=== PATIENT | male | born 1960 | race Caucasian/White ===

== ENCOUNTER 2021-02-27 10:21 | Outpatient (REF) | payer OTHER, SELFPAY ==
[2021-02-27 11:28] LABS: Influenza A PCR NEGATIVE (Negative); Influenza B PCR NEGATIVE (Negative); Resp Syncy Virus RNA Qual PCR NEGATIVE (Negative); SARS COV2 PCR INHOUSE NEGATIVE (Negative)
== END 2021-02-27 10:22 | disposition home or self-care (01) ==
LOC: HO.LNP 10:21
PROVIDERS: Visit Provider Internal Medicine
DX: Z20.822 Contact with and (suspected) exposure to COVID-19 (principal); R50.9 Fever, unspecified
CPT/HCPCS: 0241U

== ENCOUNTER 2022-05-01 06:21 | Outpatient (REF) | payer OTHER, SELFPAY ==
[2022-05-01 06:31] LABS: MANUAL DIFF FLAG NO
[2022-05-01 07:41] LABS: Basophils Absolute Auto 0.1 X10*3/uL (0.0-0.2); Basophils Percent Auto 0.8 % (0-2); Eosinophils Absolute Auto 0.4 X10*3/uL (0.0-0.4); Eosinophils Percent Auto 6.1 % (0-4); Hematocrit 41.7 % (42.0-52.0); Hemoglobin 14.4 g/dl (14.0-18.0); Imm Gran Abs Auto 0.01 X10*3/uL (0.00-0.03); Imm Gran Pct Auto 0.2 % (0.0-0.4); Lymphocytes Absolute Auto 2.4 X10*3/uL (1.2-4.9); Mean Corpuscular HGB Conc 34.5 g/dl (31.0-36.0); Mean Corpuscular Hemoglobin 30.9 pg (27.0-33.0); Mean Corpuscular Volume 89.5 fL (80.0-98.0); Monocytes Absolute Auto 0.4 X10*3/uL (0.1-1.2); Monocytes Percent Auto 7.1 % (2-11); Neutrophils Absolute Auto 2.8 x10*3/uL (2.0-8.3); Neutrophils Percent Auto 45.8 % (45-73); Platelet Count 223 X10*3/uL (160-400); Red Blood Count 4.66 X10*6/uL (4.60-5.80); Red Cell Distribution Width 12.1 % (11.0-16.0); White Blood Count 6.1 X10*3/uL (4.8-10.8)
[2022-05-01 08:03] LABS: Alanine Aminotransferase 24 U/L (0-40); Albumin Level 3.9 g/dL (3.5-5.0); Alkaline Phosphatase 85 U/L (39-117); Anion Gap 13 (12-20); Aspartate Amino Transferase 27 U/L (5-37); Bilirubin Total 0.7 mg/dL (0.0-1.0); Blood Urea Nitrogen 12 mg/dL (9-16); Calcium 9.4 mg/dL (8.4-10.2); Carbon Dioxide 25 mmol/L (22-29); Chloride 106 mmol/L (96-108); Cholesterol 120 mg/dL; Estimated Glomerular Filt Rate > 60; Glucose Fasting 97 mg/dL (60-99); HDL Cholesterol 39 mg/dL; LDL Cholesterol Calculated 60 mg/dl; Potassium 4.9 mmol/L (3.3-5.1); Sodium 139 mmol/L (135-145); Triglycerides 109 mg/dL
[2022-05-01 08:26] LABS: Appearance Urine Clear; Color Urine Yellow; Glucose Urine UA Negative (Negative); Leukocyte Esterase Urine Negative (Negative); Nitrite Urine Negative (Negative); PH 5.5 (5.0-9.0); Specific Gravity - Urine 1.015 (1.005-1.025); UMIC TRIGGER UA YES; Urine Blood Trace (Negative); Urine Ketones Negative (Negative); Urine Protein Negative (Neg-Trace)
[2022-05-01 08:32] LABS: Bacteria Urine None Seen (None Seen); Hyaline Casts Urine 0-2 /LPF (0-2); RBC Urine 0-2 /HPF (0-2); Squamous Epithelial Cell Urine 0-2 /HPF (0-2); WBC Urine 0-5 /HPF (0-5)
== END 2022-05-01 06:22 | disposition home or self-care (01) ==
LOC: HO.LAB 06:21
PROVIDERS: PCP Internal Medicine; Visit Provider Internal Medicine
DX: Z00.00 Encounter for general adult medical examination without abnormal findings (principal); Z12.5 Encounter for screening for malignant neoplasm of prostate
CPT/HCPCS: 36415; 80053; 80061; 81001; 81003; 84153; 85025

== ENCOUNTER 2023-03-05 13:41 | Outpatient (AMB) | payer OTHER, SELFPAY ==
--- NOTE | 2023-03-05 13:39 | A.OFFVIS_ITS ---
Intake Vital Signs 03/05/23 13:46 Height 6 ft Weight 211 lb 10.3 oz BMI 28.7 BP 122/82 Blood Pressure Location Lt brachial Position Sitting Pulse 68 Intake Visit Reasons: FAN RUNNER/ Gladys/ CP Intake Note: New patient Danielluis chest pain at rest had stent 8 years ago Lacer And Tier Required: No Allergies No Known Allergies [No Known Allergies*] Allergy (Unverified 04/27/20 15:39) Medication List - Last Reconciled 03/05/23 by Omar Barbosa MD aspirin (Adult Aspirin Regimen) 81 mg PO DAILY atorvastatin 40 mg PO BEDTIME diltiazem HCl 120 mg PO DAILY lisinopril 10 mg PO DAILY HPI HPI Comments History of Present Illness Details Thank you for referring Benson in cardiology consultation today. 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 At that time he was having symptoms of exertional chest pressure which gradually got worse over few months and subsequently had a stress test which was abnormal at a low workload and was decided to be treated with medicine. However he then developed acute chest discomfort at rest which she describes as pressure in his chest and subsequently had anterior STEMI and underwent urgent cardiac catheterization with drug-eluting stent to the LAD. It nonobstructive disease in the of the segment. Since then he has done very well on medical therapy. He is currently on high-intensity statin therapy with atorvastatin 40 mg with last LDL last April at 60 mg/dL. He is taking low-dose aspirin therapy. He is also taking lisinopril and diltiazem as antihypertensives. Blood pressure is well controlled. Generally active and functional. More recently started having symptoms of precordial chest pain. He describes initial 2 episodes mostly apnea rest as sudden sharp /told like feeling in his chest. Last episode happen on Friday which was more severe discomfort. He was therefore referred here for further evaluation. He said the symptoms are quite distinct from his anginal sounding chest discomfort. He has had no associated symptoms. Only thing he has done differently is at he started eating lot more candy recently. He denies any other symptoms. No exertional shortness of breath, orthopnea, PND. No lightheadedness, syncope. [facility] Medical History CAD (coronary artery disease) HTN (hypertension) Hyperlipidemia Surgical History Stented coronary artery Review of Systems Const Denies chills, Denies fatigue, Denies fever(s), Denies frequent falls, Denies weakness, Denies weight gain and Denies weight loss Eyes Denies loss of vision ENT Denies dizziness Card Denies chest pain, Denies leg edema, Denies lightheadedness, Denies palpitations, Denies dyspnea, Denies dyspnea on exertion, Denies orthopnea and Denies other (loss of consciousness) Resp Denies cough, Denies dyspnea, Denies dyspnea on exertion and Denies wheezing GI Denies hematochezia and Denies change in stool character Denies dysuria and Denies urinary frequency Musc Denies abnormal gait, Denies muscle weakness, Denies numbness, Denies radiating pain into limb and Denies tingling Skin/Breast Denies nail changes and Denies rash Neuro Denies Abnormal speech present, Denies abnormal gait, Denies dizziness, Denies frequent falls, Denies loss of vision, Denies memory loss, Denies numbness, Denies tingling and Denies weakness Psych Denies depression and Denies memory loss Endo Denies fatigue and Denies palpitations Tc/Lymph Reports easy bruising and Reports other (anemia) Aller/Immun Denies wheezing Physical Exam Vital Signs: Last Vital Signs Pulse 68 03/05/23 13:46 BP 122/82 03/05/23 13:46 BMI result Body Mass Index 28.7 Const General: cooperative, comfortable, no acute distress, alert, awake, Physically active and well groomed Nutritional Appearance: overweight Orientation/consciousness: patient oriented x3 Limitations: no limitations HEENT Head: Yes normocephalic and Yes atraumatic Neck Neck: Yes trachea midline, Yes supple and Yes no JVD Resp Effort & Inspection: normal respiratory effort Auscultation: clear to auscultation bilaterally Cardio Jugular venous distension: no JVD Palpation: normal PMI Rate: regular rate Rhythm: regular rhythm Heart sounds: S1 normal heart sound present, S2 normal heart sound present, no click, no gallops, no murmurs and no rubs GI Auscultation: normal bowel sounds Skin General skin exam: no rashes or lesions noted Neuro General: patient oriented x3 and no focal motor deficits Speech: No Abnormal speech present Extrem General: Yes no clubbing, cyanosis or edema Psych Appearance: grossly normal Office Procedures EKG Details: EKG shows normal sinus rhythm with normal EKG [id number], Complete Assessment & Plan Assessment & Plan (1) Atypical chest pain: Code(s): R07.89 - Other chest pain Plan: patient recent onset atypical chest pain after eating a lot of candy. Could be acid reflux disease. Unlikely that this represent myocardial ischemia although given his prior history this needs to be ruled out. Suggest exercise myocardial perfusion imaging to evaluate for any evidence of myocardial ischemia either by EKG and/ or perfusion imaging as well as to detect exercise capacity To give a smoke prognostic information. Also suggest echocardiogram 12 LV systolic and diastolic function to evaluate for hypertensive heart disease. It is possible that this could be related isolated ectopy beats such as PVCs. If the workup is negative would suggest a prolonged Holter monitor. Advised to avoid candies. He understands and agrees. (2) CAD (coronary artery disease): Code(s): I25.10 - Atherosclerotic heart disease of [place] coronary artery without angina pectoris Plan: CAD status post anterior STEMI about 8 years ago with proximal LAD drug- eluting stent. Since then his LDL is well optimized at 60 mg/dL. Continue high-intensity statin therapy. Continue low-dose aspirin therapy. Blood pressure is currently well optimized on dual therapy with lisinopril and diltiazem. Continue the same. Advised to monitor blood pressure at home maintain a log. Low-salt diet was discussed. Will follow up in the clinic in 4 weeks time, sooner p.r.n.. Thank you for all owing me to partake in his care Coding Level of Care Code New Pt Level 4 (10106) Diagnoses Atypical chest pain R07.89 CAD (coronary artery disease) I25.10 CPT Codes EKG - CPT: 02027-[id number], Complete ([id number])
[2023-03-05 13:46] VITALS: BP 122/82; PULSE 68; BMI 28.7
== END 2023-03-05 14:25 | disposition home or self-care (01) ==
PROVIDERS: PCP Internal Medicine; Visit Provider Internal Medicine Cardiovascular Disease
DX: R07.89 Other chest pain (principal); I25.10 Atherosclerotic heart disease of native coronary artery without angina pectoris
CPT/HCPCS: 93010; 99204

== ENCOUNTER → 2023-03-05 13:41 | Outpatient (BNVA) | payer OTHER, SELFPAY | PROVIDERS: PCP Internal Medicine; Visit Provider Internal Medicine Cardiovascular Disease | DX: R07.89 Other chest pain (principal); I25.10 Atherosclerotic heart disease of native coronary artery without angina pectoris | CPT/HCPCS: 93005 ==

== ENCOUNTER → 2023-04-07 07:41 | Outpatient (REF) | payer OTHER, SELFPAY ==
--- NOTE | ~2023-04-07 | NM_ITS ---
Exercise Myocardial perfusion study Indication: Chest pain to evaluate for myocardial ischemia Technique: The patient was brought in for an exercise perfusion study on 04/08/2023. Patient performed exercise as per Alexys protocol and was injected 30 mCi of sestamibi was given intravenously one target HR was achieved. Images were obtained using the SPECT gamma camera interlaced with the gating device. Images were obtained in supine position. Resting perfusion study was performed on 04/07/2023. Patient was administered 30 mCi of sestamibi intravenously at rest. Images were then obtained in supine position. Images obtained with and without CT attenuation. Total DLP 101 mGy-cm. Images were processed with the software and compared side to side in short axis, horizontal long axis and vertical long axis views. Findings: The stress perfusion study showed non attenuated images show mildly to moderately reduced uptake in the basal inferior wall of the LV myocardium. Remainder of the LV myocardium is normally perfused. Attenuation corrected images show minimally reduced uptake in the apex of the LV myocardium. The gated study shows normal LV systolic function with calculated LVEF of 75%. LV cavity is normal in size. The gated study shows normal systolic wall thickening and contraction of all segments. There is no transient ischemic dilation. Resting study shows in perfusion pattern compared to stress perfusion study. Gating at rest reveals normal systolic wall motion with ejection fraction at 73%. The findings are consistent with normal myocardial perfusion. NM/NM cardiolite stress test Impression: 1. Normal myocardial perfusion 2. Gated LVEF is 75% 3. Transient ischemic dilatation not present Stress EKG is suggestive of ischemia
--- NOTE | 2023-04-07 07:54 | CA_ITS ---
Transthoracic Echocardiogram Patient (Last, First, Middle): Benson Salinas G Gender: Male Date of : 1960 Age: 63 Procedure Date: 04/07/2023 Procedure Type: Transthoracic Echocardiogram Location: OP Height: 182.88 cm Weight: 95.26 kg BSA: 2.18 m2 Heart Rate: 69 bpm BP: 145 / 80 mmHg Regulatory Manager: ANDREY Referring MD: Omar Barbosa MD Symptoms: R07.89 - Other chest pain Study Quality: Fair ECG Rhythm: Sinus Conclusions: - The left ventricular systolic function is normal. The calculated ejection fraction is 69% by biplane method. - There is mild septal asymmetric hypertrophy. - No obvious valvular pathology seen on this study. Findings Left Ventricle Normal left ventricular cavity size. There is normal left ventricular wall thickness. The left ventricular systolic function is normal. The calculated ejection fraction is 69% by biplane method. There is no evidence of regional wall motion abnormalities. Evidence suggests grade I (mild) diastolic dysfunction. There is mild septal asymmetric hypertrophy. LV peak GLS 18.1%. Right Ventricle Normal right ventricular cavity size and systolic function. Atria Both atria are normal in size. Suspect overestimation during measurement. Aortic Valve There is a normal trileaflet aortic valve. There is no aortic valve stenosis. There is no aortic valve regurgitation. Mitral Valve The mitral valve appears normal. There is trace mitral valve regurgitation. There is no mitral valve stenosis. Pulmonic Valve The pulmonic valve is likely normal. Tricuspid Valve Normal tricuspid valve structure. There is mild tricuspid valve regurgitation. There is no evidence of pulmonary hypertension. Great Vessels The asc aorta is normal in size. Venous The inferior vena cava is normal in size and collapses greater than 50% with inspiration. Pericardium/Pleural There is no evidence of pericardial effusion. Prior Study Comparison No prior study available for comparison. Recommendations, Care & Conclusions No obvious valvular pathology seen on this study. Measurements 2D Linear Measurements IVSd: 1.21 0.6-0.9/0.6-1.0 cm LVIDd: 4.36 3.9-5.3/4.2-5.9 cm LVIDd Index: 2.00 2.4-3.2/2.2-3.1 cm/m2 LVIDs: 2.25 2.0-3.6 cm LVPWd: 1.03 0.7-1.1 cm LA Diam: 4.00 2.7-3.8/3.0-4.0 cm LAIDs Index: 1.83 1.5-2.3 cm/m2 LV Mass: 212.80 67-162/88-224 g LV Mass Index: 97.61 43-95/49-115 g/m2 LVOT Diam: 2.30 3.0+(-)1.3 cm 2D Systolic Function EF 4C: 70.40 >55% EF 2C: 65.80 >55% EF BiP: 69.40 >55% Mitral Valve MV Pk E: 0.79 MV PK A: 0.85 MV Decel Time: 312.00 E/A: 0.90 E'Lateral: 8.81 E'Medial: 4.79 E/E' Med: 16.50 E/E' Lat: 8.90 PHT: 91.00 MVA PHT: 2.42 Decel Taliaferro: 2.52 Aortic Valve AoV Pk Yair: 1.29 AoV Mn Yair: 0.92 AoV VTI: 0.31 AoV Pk Grad: 7.00 Aov Mn Grad: 4.00 ESTRELLA Cont.VTI: 3.49 LVOT LVOT Pk Yair: 1.04 LVOT Mn Yair: 0.77 LVOT VTI: 0.26 LVOT Pk Grad: 4.00 LVOT Mn Grad: 3.00 LVOT Diam: 2.30 LVOT Area: 4.15 Diastolic Function MV Pk E: 0.79 MV Pk A: 0.85 E/A: 0.90 E'Medial: 4.79 E/E' Med: 16.50 E' Laterial: 8.81 E/E' Lat: 8.90 Tricuspid Valve TR Pk Yair: 2.36 TR Pk Grad: 22.00 RA Press: 3.00 RVSP: 25.00 Great Vessels Aorta Sinus of Valsalva: 4.20 2.0-3.5 cm Ao Asc: 3.60 2.1-3.4 cm Pulmonary Valve PV Pk Yair: 1.06 Peak PV Grad: 4.00 Updated in Other Vendor System with Status of Final Crescencio Castañeda MD electronically signed on 04/07/2023 9:34:26 AM with status of Final
--- NOTE | 2023-04-07 07:54 | CA_ITS ---
Acquisition Time: 2023-04-07 08:56:43 Total Exercise Time: 00:07:31 Test Indications: CHEST PAIN Medications: ASA ATORVASTATIN DILTIAZEM LISINOPRIL Protocol: SHERYL Max HR: 150 BPM 96% of Pred: 156 BPM Max BP: 150/088 mmHG Max Work Load: 7.0 METS Exercise stress test exercise 7 min 31 sec of Sheryl protocol (stage 2 held) achieving 93% MPHR, with 1/10 chest pressure, mild SOB, with isolated PVCs, with blunted BPs starting 140/88, 4 min 140/88, end 150/88, with downsloping ST in leads 2, 3, aVF, V6. Chest pain resolved quickly with rest. Nuclear images pending. Test reviewed with Dr. Friend. Referred By: Omar Barbosa Overread By: Johana Willoughby
--- NOTE | 2023-04-07 07:54 | HM_ITS ---
* Total monitoring time about 7 days. * Underlying rhythm is sinus. Average ventricular rate 57/Min. Range 39 to 113/min. * Frequent supraventricular ectopy with a burden of 8%. * Rare ventricular ectopy. * No significant pauses or AV blocks. * Is patient Marker count 6, in association with sinus rhythm/sinus bradycardia. * No events in diary. MTDD
== END ==
LOC: HO.CARD 07:41
PROVIDERS: Visit Provider Internal Medicine Cardiovascular Disease
DX: R07.89 Other chest pain (principal)
CPT/HCPCS: 78452; 93017; 93242; 93306; 93356; A9500; J0280; J2785

== ENCOUNTER → 2023-04-07 07:54 | Outpatient (BNV) | payer OTHER, SELFPAY | PROVIDERS: Visit Provider Internal Medicine | DX: I47.1 Supraventricular tachycardia (principal) | CPT/HCPCS: 78452; 93016; 93018; 93244; 93306 ==

== ENCOUNTER 2023-04-22 15:09 | Outpatient (AMB) | payer OTHER, SELFPAY ==
--- NOTE | 2023-04-22 15:25 | MHC.OFFVIS ---
Intake Vital Signs 04/22/23 15:26 Height 6 ft Weight 207 lb 3.752 oz BMI 28.1 BP 120/72 Blood Pressure Location Lt brachial Position Sitting Pulse 61 Intake Visit Reasons: f/up testing per NS Intake Note: Follow-up after holter echo and stress feeling good Coding Compliance Auditor Required: No Allergies No Known Allergies [No Known Allergies*] Allergy (Unverified 04/27/20 15:39) Medication List - Last Reconciled 04/22/23 by Omar Barbosa MD aspirin (Adult Aspirin Regimen) 81 mg PO DAILY atorvastatin 40 mg PO BEDTIME diltiazem HCl 120 mg PO DAILY lisinopril 10 mg PO DAILY HPI HPI Comments History of Present Illness Details Benson comes for follow-up. He recently underwent a myocardial perfusion imaging which was within normal limits. Stress test was positive at at workload for mild chest tightness although he thinks this was more shortness of breath from deconditioning. Echocardiogram shows normal LV systolic function. Holter monitor this not show any significant arrhythmias. He is taking all his medications regularly. Denies any new symptoms. He said his chest discomfort is now dissipated [facility] Medical History Hyperlipidemia HTN (hypertension) CAD (coronary artery disease) Surgical History Stented coronary artery Review of Systems Const Denies chills, Denies fatigue, Denies fever(s), Denies frequent falls, Denies weakness, Denies weight gain and Denies weight loss ENT Denies dizziness Card Denies chest pain, Denies leg edema, Denies lightheadedness, Denies palpitations, Denies dyspnea, Denies dyspnea on exertion, Denies orthopnea and Denies other (loss of consciousness) Resp Denies cough, Denies dyspnea and Denies dyspnea on exertion GI Denies hematochezia and Denies change in stool character Musc Denies abnormal gait, Denies muscle weakness, Denies numbness, Denies radiating pain into limb and Denies tingling Neuro Denies Abnormal speech present, Denies abnormal gait, Denies dizziness, Denies frequent falls, Denies numbness, Denies tingling and Denies weakness Endo Denies fatigue and Denies palpitations Physical Exam Vital Signs: Last Vital Signs Pulse 61 04/22/23 15:26 BP 120/72 04/22/23 15:26 BMI result Body Mass Index 28.1 Const General: cooperative, comfortable, no acute distress, alert, awake, Physically active and well groomed Nutritional Appearance: overweight Orientation/consciousness: patient oriented x3 Limitations: no limitations Neck Neck: Yes trachea midline, Yes supple and Yes no JVD Resp Effort & Inspection: normal respiratory effort Auscultation: clear to auscultation bilaterally Cardio Jugular venous distension: no JVD Palpation: normal PMI Rate: regular rate Rhythm: regular rhythm Heart sounds: S1 normal heart sound present, S2 normal heart sound present, no click, no gallops, no murmurs and no rubs GI Auscultation: normal bowel sounds Neuro General: patient oriented x3 and no focal motor deficits Speech: No Abnormal speech present Extrem General: Yes no clubbing, cyanosis or edema Psych Appearance: grossly normal Assessment & Plan Assessment & Plan (1) CAD (coronary artery disease): Code(s): I25.10 - Atherosclerotic heart disease of [place] coronary artery without angina pectoris Plan: CAD with remote stenting of LAD with recent atypical chest discomfort with normal myocardial perfusion imaging. Good prognosis with this was discussed continue aggressive risk factor modification. Low-dose aspirin therapy for life. Continue aggressive blood pressure control, see below. Continue high-intensity statin therapy. Annual lipid check should be pursued. Advised to maintain heart healthy lifestyle and regular physical activity. He understands and agrees. Advised to call with any new symptoms. (2) HTN (hypertension): Code(s): I10 - Essential (primary) hypertension Plan: Hypertension which is currently well optimized advised to monitor blood pressure at home maintain a log. Goal blood pressure less than 130/84. Continue current therapy. Low-salt diet was discussed. Continue maintain heart healthy lifestyle and regular physical activity. Will follow up in the clinic in 1 year's time, sooner p.r.n.. Thank you for allowing me to partake in his care Coding Level of Care Code Est Pt Level 4 (27636) Diagnoses CAD (coronary artery disease) I25.10 HTN (hypertension) I10
[2023-04-22 15:26] VITALS: BP 120/72; PULSE 61; BMI 28.1
== END 2023-04-22 15:44 | disposition home or self-care (01) ==
PROVIDERS: PCP Internal Medicine; Referring Provider Internal Medicine; Visit Provider Internal Medicine Cardiovascular Disease
DX: I25.10 Atherosclerotic heart disease of native coronary artery without angina pectoris (principal); I10 Essential (primary) hypertension
CPT/HCPCS: 99214

== ENCOUNTER → 2023-04-22 15:09 | Outpatient (BNVA) | payer OTHER, SELFPAY | PROVIDERS: PCP Internal Medicine; Referring Provider Internal Medicine; Visit Provider Internal Medicine Cardiovascular Disease ==

== ENCOUNTER 2023-11-24 06:53 | Outpatient (REF) | payer OTHER, SELFPAY ==
[2023-11-24 07:10] LABS: MANUAL DIFF FLAG NO
[2023-11-24 07:31] LABS: Basophils Percent Auto 0.6 % (0-2); Eosinophils Absolute Auto 0.5 X10*3/uL (0.0-0.4); Eosinophils Percent Auto 7.1 % (0-4); Hematocrit 42.3 % (42.0-52.0); Hemoglobin 14.8 g/dl (14.0-18.0); Imm Gran Abs Auto 0.02 X10*3/uL (0.00-0.03); Imm Gran Pct Auto 0.3 % (0.0-0.4); Lymphocytes Absolute Auto 2.4 X10*3/uL (1.2-4.9); Lymphocytes Percent Auto 37.1 % (20-40); Mean Corpuscular Hemoglobin 31.1 pg (27.0-33.0); Mean Corpuscular Volume 88.9 fL (80.0-98.0); Mean Platelet Volume 10.6 fL (9.4-12.4); Monocytes Absolute Auto 0.5 X10*3/uL (0.1-1.2); Monocytes Percent Auto 7.9 % (2-11); Neutrophils Absolute Auto 3.1 x10*3/uL (2.0-8.3); Platelet Count 216 X10*3/uL (160-400); Red Blood Count 4.76 X10*6/uL (4.60-5.80); Red Cell Distribution Width 11.9 % (11.0-16.0); White Blood Count 6.6 X10*3/uL (4.8-10.8)
[2023-11-24 07:46] LABS: Alanine Aminotransferase 27 U/L (0-40); Albumin Level 3.9 g/dL (3.5-5.0); Alkaline Phosphatase 89 U/L (39-117); Anion Gap 13 (12-20); Aspartate Amino Transferase 31 U/L (5-37); Bilirubin Total 0.8 mg/dL (0.0-1.0); Blood Urea Nitrogen 15 mg/dL (9-16); Calcium 9.6 mg/dL (8.4-10.2); Carbon Dioxide 25 mmol/L (22-29); Chloride 107 mmol/L (96-108); Cholesterol 118 mg/dL (<200); Estimated Glomerular Filt Rate > 60; Glucose Fasting 110 mg/dL (60-99); HDL Cholesterol 39 mg/dL (>40); LDL Cholesterol Calculated 56 mg/dL (<100); Potassium 4.5 mmol/L (3.3-5.1); Sodium 140 mmol/L (135-145); Total Protein 7.2 g/dL (6.5-8.0); Triglycerides 115 mg/dL (<150)
[2023-11-24 08:04] LABS: Prostate Specific Antigen 0.29 ng/mL (<0.05-4.0)
[2023-11-24 08:25] LABS: Appearance Urine Clear; Color Urine Yellow; Glucose Urine UA Negative (Negative); Leukocyte Esterase Urine Negative (Negative); Nitrite Urine Negative (Negative); PH 6.5 (5.0-9.0); Urine Blood Negative (Negative); Urine Ketones Negative (Negative); Urine Protein Negative (Neg-Trace)
== END 2023-11-24 06:54 | disposition home or self-care (01) ==
LOC: HO.LAB 06:53
PROVIDERS: PCP Internal Medicine; Visit Provider Internal Medicine
DX: Z12.5 Encounter for screening for malignant neoplasm of prostate (principal); I10 Essential (primary) hypertension; E78.00 Pure hypercholesterolemia, unspecified; I25.10 Atherosclerotic heart disease of native coronary artery without angina pectoris; N40.0 Benign prostatic hyperplasia without lower urinary tract symptoms
CPT/HCPCS: 36415; 80053; 80061; 81003; 84153; 85025

== ENCOUNTER 2024-04-20 14:53 | Outpatient (AMB) | payer OTHER, SELFPAY ==
[2024-04-20 15:07] VITALS: BP 120/80; PULSE 62; BMI 27.8
--- NOTE | 2024-04-20 15:07 | MHC.OFFVIS ---
Vital Signs 04/20/24 15:07 Height 6 ft Weight 205 lb 0.478 oz BMI 27.8 BP 120/80 Blood Pressure Location Lt brachial Position Sitting Pulse 62 Intake Visit Reasons: 1 yr f/up Intake Note: 1 year follow-up with ekg Environmental Compliance Specialist Required: No Allergies No Known Allergies [No Known Allergies*] Allergy (Unverified 04/27/20 15:39) Medication List - Last Reconciled 04/20/24 by Omar Barbosa MD aspirin (Adult Aspirin Regimen) 81 mg PO DAILY atorvastatin 40 mg PO BEDTIME diltiazem HCl CD 120 mg PO DAILY lisinopril 10 mg PO DAILY HPI Comments Details: Benson comes for follow-up. Doing very well from cardiac perspective. Tries to walk twice a day thrice a week for 25-30 minutes. No exertional symptoms. Denies any exertional chest pain or shortness of breath. Denies any strong palpitations or irregular heartbeat or fast heart rate. Takes all his medications. Last LDL was well optimized at 56. He denies any lightheadedness, syncope. Takes all his medications. Blood pressure is generally when measured on outside facilities usually 120/80. [facility] Medical History Hyperlipidemia HTN (hypertension) CAD (coronary artery disease) Surgical History Stented coronary artery Review of Systems Const Denies chills, Denies fatigue, Denies fever(s), Denies frequent falls, Denies weakness, Denies weight gain and Denies weight loss ENT Denies dizziness Card Denies chest pain, Denies leg edema, Denies lightheadedness, Denies palpitations, Denies dyspnea, Denies dyspnea on exertion, Denies orthopnea and Denies other (loss of consciousness) Resp Denies cough, Denies dyspnea and Denies dyspnea on exertion GI Denies hematochezia and Denies change in stool character Musc Denies abnormal gait, Denies muscle weakness, Denies numbness, Denies radiating pain into limb and Denies tingling Neuro Denies Abnormal speech present, Denies abnormal gait, Denies dizziness, Denies frequent falls, Denies numbness, Denies tingling and Denies weakness Endo Denies fatigue and Denies palpitations Physical Exam Const General: cooperative, comfortable, no acute distress, alert, awake, Physically active and well groomed Nutritional Appearance: overweight Orientation/consciousness: patient oriented x3 Limitations: no limitations Neck Neck: Yes trachea midline, Yes supple and Yes no JVD Resp Effort & Inspection: normal respiratory effort Auscultation: clear to auscultation bilaterally Cardio Jugular venous distension: no JVD Palpation: normal PMI Rate: regular rate Rhythm: regular rhythm Heart sounds: S1 normal heart sound present, S2 normal heart sound present, no click, no gallops, no murmurs and no rubs GI Auscultation: normal bowel sounds Neuro General: patient oriented x3 and no focal motor deficits Speech: No Abnormal speech present Extrem General: Yes no clubbing, cyanosis or edema Psych Appearance: grossly normal Office Procedures EKG Details: EKG shows normal sinus rhythm with normal EKG [id number], Complete Assessment & Plan Assessment & Plan (1) CAD (coronary artery disease): Code(s): I25.10 - Atherosclerotic heart disease of [place] coronary artery without angina pectoris Category: Medical Plan: CAD with remote stenting of the LAD for acute myocardial infarction. Since then he had a myocardial perfusion imaging last year for atypical chest pain which is within normal limits. Continues to have no concerning symptoms. Management of coronary artery disease was discussed in details. Continue lifelong aspirin therapy. Continue high-intensity statin therapy with LDL currently well optimized. Importance of medical therapy was discussed and pathophysiology of atherosclerosis was discussed. Will follow-up with ETT next year (2) HTN (hypertension): Code(s): I10 - Essential (primary) hypertension Category: Medical Plan: Hypertension which is currently well optimized advised to monitor blood pressure at home maintain a log. Goal blood pressure less than 130/80. Low-salt diet was discussed. Continue current therapy with lisinopril and diltiazem. Will follow up in the clinic in 1 year's time, sooner p.r.n.. Thank you for allowing me to partake in his care Coding Level of Care Code Est Pt Level 4 (34188) Diagnoses CAD (coronary artery disease) I25.10 HTN (hypertension) I10 CPT Codes EKG - CPT: 00088-[id number], Complete ([id number])
== END 2024-04-20 15:38 | disposition home or self-care (01) ==
PROVIDERS: PCP Internal Medicine; Visit Provider Internal Medicine Cardiovascular Disease
DX: I25.10 Atherosclerotic heart disease of native coronary artery without angina pectoris (principal); I10 Essential (primary) hypertension
CPT/HCPCS: 93010; 99214

== ENCOUNTER → 2024-04-20 14:53 | Outpatient (BNVA) | payer OTHER, SELFPAY | PROVIDERS: PCP Internal Medicine; Visit Provider Internal Medicine Cardiovascular Disease | DX: I25.10 Atherosclerotic heart disease of native coronary artery without angina pectoris (principal); I10 Essential (primary) hypertension; Z79.899 Other long term (current) drug therapy | CPT/HCPCS: 93005 ==

== ENCOUNTER 2025-03-07 09:37 | Outpatient (AMB) | payer OTHER, SELFPAY ==
--- NOTE | 2025-03-07 09:53 | A.OFFPC_ITS ---
Vital Signs 03/07/25 09:53 03/07/25 09:54 03/07/25 09:56 Height 6 ft Weight 206 lb BP 150/80 H Blood Pressure Location Lt brachial Position Sitting Respiration 16 Pulse 74 Pulse Source Pulse Oximeter Temp 98.5 F Temp Source Temporal Artery Scan Pulse Oximetry (%) 98 Oxygen Delivery Method Room Air Intake Visit Reasons: Annual - see comments - Croke pt. Card Doffer Required: No Accompanied by: Self / Same As Patient Allergies No Known Allergies (No Known Allergies*) Allergy (Verified 03/07/25 09:53) Tobacco use date assessed: 03/07/25 [facility] Medical History Hyperlipidemia HTN (hypertension) CAD (coronary artery disease) Surgical History History of colonoscopy (~11/06/10) Stented coronary artery Social History Patient Tobacco Use Status: Never used Tobacco e-Cigarette/Vaping Use: Never Used Questionnaire AUDIT C Alcohol Use Questionnaire (AUDIT-C) 1. How often do you have a drink containing alcohol?: Monthly or less Total Score: 1 Physical exam (Primary Care) Vital Signs: Last Vital Signs Temp 98.5 F 03/07/25 09:56 Pulse 74 03/07/25 09:56 Resp 16 03/07/25 09:56 BP 150/80 H 03/07/25 09:56 Pulse Ox 98 03/07/25 09:56 Oxygen Delivery Method Room Air 03/07/25 09:56 Tobacco/Smoking Status: Tobacco use Status Tobacco use date assessed 03/07/25 03/07/25 09:59 Patient Tobacco Use Status Never used Tobacco 03/07/25 09:59 e-Cigarette/Vaping Use Never Used 03/07/25 09:59 Coding Level of Care Code New Pt Level 4 (69808) Complex EM visit Add On G2211 Diagnoses HTN (hypertension) I10 Assessment & Plan Assessment & Plan (1) HTN (hypertension): Code(s): I10 - Essential (primary) hypertension Category: Medical Plan: History of Present Illness - The patient is a 64-year-old male presenting with right knee pain and preventative care needs. - Right knee pain: The patient reports soreness in the right knee, particularly when going up and downstairs, which started about a week ago. Walking does not exacerbate the pain significantly. - Colon polyps: The patient has a history of colon polyps, which were previously removed during a colonoscopy. There is no family history of colon cancer. - Preventative care: The patient is due for a repeat colonoscopy as part of routine screening. He previously received annual stool tests but did not receive one this year. - Earwax accumulation: The patient reports a history of earwax buildup, with one ear having more wax than the other, but it is not currently affecting his hearing. 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 He lives with his 27-year-old son and engages in regular walking exercises around his block. 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 - Family status: Lives with his 27-year-old son. - Exercise: Engages in regular walking exercises around his block, approximately 2/3 of a mile, not daily. Review of Systems - Musculoskeletal: Reports soreness in the right knee, particularly when going up and downstairs. - Gastrointestinal: Denies family history of colon cancer. - Ear/Nose/Throat: Reports history of earwax buildup, with one ear having more wax than the other, but denies current hearing impairment. Physical Exam General: Cooperative and healthy appearing Nutritional Appearance: Well nourished Orientation/consciousness: Patient oriented x3 Limitations: No limitations Head: Normal to inspection General: Appearance normal, both eyes and all related structures Neck: Normal visual inspection Chest: Normal palpation of entire chest wall Respiratory: N ormal respiratory effort Neurology: Patient oriented x3, hearing is selective, some wax in ears but not blocking hearing. Results Plan 1. Right Knee Pain - Plan: Monitor symptoms and consider further evaluation if pain persists or worsens. 2. Colon Polyps - Plan: Schedule a repeat colonoscopy for surveillance and removal of any new polyps. 3. Preventative Care: Colon Cancer Screening - Plan: Arrange for a colonoscopy as part of routine screening. Discussion Notes I discussed with the patient the importance of scheduling a repeat colonoscopy for surveillance of colon polyps and the need for routine screening. We also talked about monitoring his right knee pain and considering further evaluation if symptoms persist. Patient Instructions - Schedule a colonoscopy for colon cancer screening. - Monitor right knee pain and seek further evaluation if it persists or worsens. Orders: Orders Lipid Panel Today I10 - Essential (primary) hypertension Liver Panel Today I10 - Essential (primary) hypertension Prostate Specific Antigen Scr Today I10 - Essential (primary) hypertension Basic Metabolic Panel Today I10 - Essential (primary) hypertension Thyroid Stimulating Hormone Today I10 - Essential (primary) hypertension Complete Blood Count no Diff Today I10 - Essential (primary) hypertension Referrals Gastroenterology Referral Z12.11 - Encounter for screening for malignant neoplasm of colon
[2025-03-07 09:56] VITALS: BP 150/80; PULSE 74; RESP 16; TEMP 36.9; O2SAT 98
--- OUTSIDE RECORDS SUMMARY | 2025-03-07 10:31 | XMS_ITS | Continuity of Care Document ---
Author Organization [facility] Address [address] [address] Insurance Providers Payer Plan Claims Address Claims Phone Policy Number Group Number Relation Employer Guarantor Name Guarantor Guarantor Address [facility]or Phone [facility] [address], [facility] [place] [address] tel:[phone] [id number] Self frieda bolton [address] [place] [address] [place]ley [place] [id number] Self frieda bolton [address] [place] [address] Problems Condition ICD9 code ICD10 code SNOMED code Start Date End Date S tatus Encounter for screening for other metabolic disorders Z13.228 Results No Results Allergies, adverse reactions, alerts No known allergies and adverse reactions Medications No administered medications reported Vital Signs No vital signs reported Social History No smoking Hx information available
--- OUTSIDE RECORDS SUMMARY | 2025-03-07 10:32 | XMS_ITS | Patient Health Record ---
Author Organization [facility] Address [address] [place] [address] Care Team Providers Care Teaching Associate Name Role Phone Joe Ndiaye Unavailable [phone] Reason For Referral No Information Plan Of Treatment No Information
== END 2025-03-07 10:33 | disposition home or self-care (01) ==
LOC: HO.HMCHD 09:40
PROVIDERS: PCP Internal Medicine; Visit Provider Internal Medicine
DX: I10 Essential (primary) hypertension (principal)

== ENCOUNTER 2025-03-12 08:01 | Outpatient (REF) | payer OTHER, SELFPAY ==
--- OUTSIDE RECORDS SUMMARY | 2025-03-12 08:05 | XMS_ITS | Patient Health Record ---
Author Organization [facility] Address [address] [place] [address] Care Team Providers Care Vat Operator Name Role Phone JAMAL ENGEL Primary Care Provider Joe Whiting Unavailable [phone] Reason For Referral No Information Plan Of Treatment Next Appt Details Provider Name:Joe Ndiaye , 07/12/2025 11:10:00 AM, [address], [address], [place], [address], Insurance Providers Payer Name Payer Address Payer Phone Subscriber Number Group Number Insured Name Patient Relationship to Insured Coverage Start Date Coverage End Date [facility] [address] [facility] [place] [phone] [id number] ATTORNEY HEIDI CHEUNG Self - patient is the insured
[2025-03-12 08:38] LABS: Hematocrit 40.2 % (42.0-52.0); Hemoglobin 14.4 g/dl (14.0-18.0); Mean Corpuscular HGB Conc 35.8 g/dl (31.0-36.0); Mean Corpuscular Hemoglobin 31.4 pg (27.0-33.0); Mean Corpuscular Volume 87.6 fL (80.0-98.0); NRBC Abs Auto 0.000 X10*3/uL (0.0-0.012); NRBC Pct Auto 0.0 /100WBC (0.0-0.2); Platelet Count 191 X10*3/uL (160-400); Red Blood Count 4.59 X10*6/uL (4.60-5.80); White Blood Count 6.2 X10*3/uL (4.8-10.8)
[2025-03-12 09:23] LABS: Alanine Aminotransferase 30 U/L (0-40); Albumin Level 4.1 g/dL (3.5-5.0); Alkaline Phosphatase 106 U/L (39-117); Anion Gap 10 (12-20); Aspartate Amino Transferase 42 U/L (5-37); Blood Urea Nitrogen 16 mg/dL (9-16); Calcium 9.3 mg/dL (8.4-10.2); Carbon Dioxide 27 mmol/L (22-29); Chloride 110 mmol/L (96-108); Cholesterol 115 mg/dL (<200); Estimated Glomerular Filt Rate > 60; HDL Cholesterol 38 mg/dL (>40); Potassium 4.8 mmol/L (3.3-5.1); Sodium 142 mmol/L (135-145); Thyroid Stimulating Hormone 1.08 uIU/mL (0.32-4.0); Total Protein 7.2 g/dL (6.5-8.0); Triglycerides 99 mg/dL (<150)
== END 2025-03-12 08:02 | disposition home or self-care (01) ==
LOC: HO.LAB 08:01
PROVIDERS: PCP Internal Medicine; Visit Provider Internal Medicine
DX: Z12.5 Encounter for screening for malignant neoplasm of prostate (principal); I10 Essential (primary) hypertension
CPT/HCPCS: 36415; 80048; 80061; 80076; 84153; 84443; 85027

== ENCOUNTER 2025-05-05 14:52 | Outpatient (AMB) | payer OTHER, SELFPAY ==
--- NOTE | 2025-05-05 15:13 | MHC.OFFVIS ---
Vital Signs 05/05/25 15:14 Height 6 ft Weight 205 lb 0.478 oz BMI 27.8 BP 150/84 H Blood Pressure Location Lt brachial Position Sitting Pulse 61 Pulse Source Monitor Intake Visit Reasons: 1 year fu after stress Intake Note: 1 yr f/up after stress Senior Mortgage Loan Processor Required: No Accompanied by: Self / Same As Patient Allergies No Known Allergies (No Known Allergies*) Allergy (Verified 03/07/25 09:53) Medication List - Last Reconciled 05/05/25 by Omar Barbosa MD aspirin (Adult Aspirin Regimen) 81 mg PO DAILY atorvastatin 40 mg PO BEDTIME diltiazem HCl CD 120 mg PO DAILY lisinopril 10 mg PO DAILY loratadine 10 mg PO DAILY PRN multivitamin 1 tab PO DAILY HPI Comments Details: Dung comes for follow-up. Any noted to have significantly elevated blood pressure on clinical visit. Today also blood pressure is significantly elevated systolic 180. He does not have any symptoms related to it. Continues to take all his medications regularly. His most recent LDL was well optimized at 58 mg/dL. He has no exertional chest pain. Does feel a little twinge in his chest 1 this is awhile. He has not been able to exercise much due to osteoarthritis issues in his right knee. However with his usual activity level he does not have any significant symptoms with exertion. Does complain of increased professional as well as personal stress. [facility] Medical History Hyperlipidemia HTN (hypertension) CAD (coronary artery disease) Surgical History History of colonoscopy (~11/06/10) Stented coronary artery Social History Patient Tobacco Use Status: Never used Tobacco e-Cigarette/Vaping Use: Never Used Review of Systems Const Denies chills, Denies fatigue, Denies fever(s), Denies frequent falls, Denies weakness, Denies weight gain and Denies weight loss ENT Denies dizziness Card Denies chest pain, Denies leg edema, Denies lightheadedness, Denies palpitations, Denies dyspnea and Denies dyspnea on exertion Resp Denies cough, Denies dyspnea and Denies dyspnea on exertion GI Denies hematochezia Musc Denies abnormal gait, Denies muscle weakness, Denies numbness, Denies radiating pain into limb and Denies tingling Neuro Denies Abnormal speech present, Denies abnormal gait, Denies dizziness, Denies frequent falls, Denies numbness, Denies tingling and Denies weakness Endo Denies fatigue and Denies palpitations Physical Exam Vital Signs: Last Vital Signs Pulse 61 05/05/25 15:14 BP 150/84 H 05/05/25 15:14 BMI result Body Mass Index 27.8 Const General: cooperative, comfortable, no acute distress, alert, awake, Physically active and well groomed Nutritional Appearance: overweight Orientation/consciousness: patient oriented x3 Limitations: no limitations Neck Neck: Yes trachea midline, Yes supple and Yes no JVD Resp Effort & Inspection: normal respiratory effort Auscultation: clear to auscultation bilaterally Cardio Jugular venous distension: no JVD Palpation: normal PMI Rate: regular rate Rhythm: regular rhythm Heart sounds: S1 normal heart sound present, S2 normal heart sound present, no click, no gallops, no murmurs and no rubs GI Auscultation: normal bowel sounds Neuro General: patient oriented x3 and no focal motor deficits Speech: No Abnormal speech present Extrem General: Yes no clubbing, cyanosis or edema Psych Appearance: grossly normal Office Procedures EKG Details: EKG shows normal sinus rhythm nonspecific ST-T changes [id number]-Owjkblpnlhllgysen, Complete Assessment & Plan Assessment & Plan (1) CAD (coronary artery disease): Code(s): I25.10 - Atherosclerotic heart disease of [place] coronary artery without angina pectoris Category: Medical Plan: CAD with remote stenting of the LAD without any recurrent symptoms suggestive of angina or myocardial ischemia. Continue aggressive medical therapy. Low-dose aspirin therapy for life to be continued. Continue high-intensity statin therapy with target goal LDL well achieved. Needs better blood pressure control, see below. Encouraged to follow up with Orthopedics for his right knee issues so that he increase his activity level. Advised to call me with any new symptoms. (2) Uncontrolled hypertension: Code(s): I10 - Essential (primary) hypertension Category: Medical Plan: Uncontrolled hypertension probably related to recent increased personal and professional stressed. Advised to monitor blood pressure at home maintain a log. Meanwhile will increase his lisinopril to 20 mg and add hydrochlorothiazide with a combination therapy 12.5 mg to his regimen. Follow-up BMP in 2 weeks' time and follow up nurse visit in 2 weeks time. Management of hypertension was discussed. Stress mitigation strategies to be pursued. Low-salt diet. Follow up in the clinic in 2 weeks for blood pressure check. Thank you for allowing me to partake in his care Orders: Orders Basic Metabolic Panel 2 Weeks I10 - Essential (primary) hypertension Medications: New lisinopril-hydrochlorothiazide 20-12.5 mg 1 tab PO DAILY 30 tabs 5RF Discontinued lisinopril Discontinued Reason: Doctor's Order 10 mg PO DAILY 90 tabs 1RF Coding Level of Care Code Est Pt Level 4 (96138) Complex EM visit Add On G2211 Diagnoses CAD (coronary artery disease) I25.10 Uncontrolled hypertension I10 CPT Codes EKG - CPT: 65678-Leizspdigchtnqarf, Complete ([id number])
[2025-05-05 15:14] VITALS: BP 150/84; PULSE 61; BMI 27.8
--- OUTSIDE RECORDS SUMMARY | 2025-05-05 19:10 | XMS_ITS | Patient Health Record ---
Author Organization [facility] Address [address] [place] [address] Care Team Providers Care Sales Special Agent Name Role Phone JAMAL ENGEL Primary Care Provider Joe Whiting Unavailable [phone] Reason For Referral No Information Plan Of Treatment Next Appt Details Provider Name:Joe Ndiaye , 07/12/2025 11:10:00 AM, [address], [address], [place], [address], Insurance Providers Payer Name Payer Address Payer Phone Subscriber Number Group Number Insured Name Patient Relationship to Insured Coverage Start Date Coverage End Date [facility] [address] [facility] [place] [phone] [id number] ATTORNEY HEIDI CHEUNG Self - patient is the insured
== END 2025-05-05 15:33 | disposition home or self-care (01) ==
LOC: HO.HCS 14:53
PROVIDERS: PCP Internal Medicine; Visit Provider Internal Medicine Cardiovascular Disease
DX: I25.10 Atherosclerotic heart disease of native coronary artery without angina pectoris (principal); I10 Essential (primary) hypertension
CPT/HCPCS: 93010; 99214; G2211

== ENCOUNTER → 2025-05-05 14:52 | Outpatient (BNVA) | payer OTHER, SELFPAY | PROVIDERS: PCP Internal Medicine; Visit Provider Internal Medicine Cardiovascular Disease | DX: I10 Essential (primary) hypertension (principal); I25.10 Atherosclerotic heart disease of native coronary artery without angina pectoris | CPT/HCPCS: 93005 ==

== ENCOUNTER 2025-07-15 09:45 | Outpatient (AMB) | payer OTHER, SELFPAY ==
--- NOTE | 2025-07-15 09:47 | A.OFFPC_ITS ---
Vital Signs 07/15/25 10:01 07/16/25 21:19 Height 5 ft 11.26 in Weight 92.079 kg BMI 28.1 BP 144/78 H 134/80 Blood Pressure Location Lt brachial Position Sitting Respiration 18 Pulse 65 Pulse Source Pulse Oximeter Temp 98.6 F Temp Source Temporal Artery Scan Pulse Oximetry (%) 97 Oxygen Delivery Method Room Air Intake Visit Reasons: reflux episode Merchandise Executive Required: No Accompanied by: Self / Same As Patient Allergies shellfish derived (shellfish) Allergy (Severe, Verified 07/15/25 09:55) stomach pain, vomiting, diarrhea Tobacco use date assessed: 03/07/25 Fall risk assessment: No Falls in past year Last assessed Fall Risk: 07/15/25 Dental Screening Dental Screen Date: 07/15/25 Did you have a dental visit in the last 12 months?: Yes Did you have a dental problem in the last 6 months where you did not have access to dental care?: No Was dental information given to patient?: Patient has dentist HPI HPI Comments History of Present Illness Details 65 year old male with history of cad, ht n, hld presenting to the office for evaluation. HTN- initial bp 144/78, recheck 134/80. On dilt 120mg CD, lisinopril-hctz 20- 12.5mg HLD/CAD- atorvastatin 40mg nightly, asa, diltiazem. Remote history stenting to LAD. Follows with Dr. Barbosa OA knees- following with [facility]. Some narrowing no intervention needed. Frequent cerumen impaction- ENT. No hearing loss Concerns: New onset reflux ongoing x several days. Has a substernal burning with frequent hiccups. He has had excessive saliva refluxing into his mouth. Very thick, had to spit it out. Some nausea, no vomiting. No change in bowel habits. No melena or hematochezia. No abd pain. Feels his voice is different/scratchy. Has been avoiding typical triggers. Taking tums. Despite this continued increasing in frequency. Purchased nexium which has been helping. ROS: General: No fevers, malaise, unintentional weight loss HEENT: No blurred vision, diplopia. No sore throat, nasal congestion, rhinorrhea, sinus pain, ear pain Cardiovascular: No chest pain, palpitations, or leg edema Respiratory: No shortness of breath, wheezing, cough GI: No abdominal pain, nausea, vomiting, diarrhea, constipation, melena, hematochezia : No dysuria, hematuria, increased urinary frequency, decreased urinary output MSK: No myalgia, back pain Neuro: No headaches, weakness, paresthesias Skin: No rashes or lesions EXAM: Constitutional - Awake and Alert, No apparent distress Eyes - PERRL Cardiovascular - S1S2, RRR, No edema Respiratory - Normal lung expansion, Normal respiratory effort, No respiratory distress, CTA bilaterally Extremities - no calf tenderness bilaterally, no swelling Skin - Warm/Dry Neurological - Alert & oriented x3 Psychological - Appropriate affect [facility] Medical History Hyperlipidemia HTN (hypertension) CAD (coronary artery disease) Surgical History History of colonoscopy (~11/06/10) Stented coronary artery Social History Housing: House Patient Tobacco Use Status: Never used Tobacco e-Cigarette/Vaping Use: Never Used service: No Current occupational status: employed Current occupation: [employer] Questionnaire PHQ-9 Over the last 2 weeks, how often have you been bothered by any of the following problems? 1. Little interest or pleasure in doing things: not at all 2. Feeling down, depressed, or hopeless: not at all 3. Trouble falling or staying asleep, or sleeping too much: several days 4. Feeling tired or having little energy: not at all 5. Poor appetite or overeating: not at all 6. Feeling bad about yourself - or that you are a failure or have let yourself or your family down: not at all 7. Trouble concentrating on things, such as reading the newspaper or watching television: not at all 8. Moving or speaking so slowly that other people could have noticed. Or the opposite - being so fidgety or restless that you have been moving around a lot more than usual: not at all 9. Thoughts that you would be better off or of hurting yourself in some way: not at all Total score: 1 Depression Screening Interpretation: Negative Depression Screening Done: Yes 21863 - PHQ-9 Billing: Yes Source: Developed by Drs. Joe Darby, Padilla Kay and colleagues, with an educational kris from [employer]. Thrive Questionnaire Date Thrive assessed: 07/15/25 I am a: Patient What is your living situation today?: I have a steady place to live Within the past 12 months, did the food you bought not last and you didn't have the money to get more?: Never true Within the past 12 months, did you worry whether your food would run out before you got money to buy more?: Never true Do you have trouble paying for medicines?: No Do you have trouble getting transportation to medical appointments?: No Do you have trouble paying your heating and electricity bill?: No Do you have trouble taking care of your child, family member or friend?: No Do you have trouble with day-to-day activities such as bathing, preparing meals, shopping, managing finances, etc.?: No Are you currently unemployed and looking for a job?: No Are you interested in more education?: No THRIVE Score: 0 AUDIT C Alcohol Use Questionnaire (AUDIT-C) 1. How often do you have a drink containing alcohol?: Monthly or less 2. How many drinks containing alcohol do you have on a typical day when you are drinking?: 1 or 2 3. How often do you have six or more drinks on one occasion?: Never Total Score: 1 WAQAR-7 AMB Questionnaire WAQAR-7 Date WAQAR - 7 assessed: 07/15/25 Feeling nervous, anxious, or on edge: 0 = Not at all Not being able to stop or control worryin = Not at all Worrying too much about different things: 0 = Not at all Trouble relaxin = Not at all Being so restless that it is hard to sit still: 0 = Not at all Becoming easily annoyed or irritable: 0 = Not at all Feeling afraid as if something awful might happen: 0 = Not at all Total WAQAR-7 score (0-4 normal; 5-9 mild; 10-14 moderate; 15-21 severe): 0 Source: Developed by Drs. Joe Darby, Padilla Kay and colleagues, with an educational kris from [employer] WAQAR-7 Assessment Billing WAQAR-7 Assessment Tool: WAQAR-7 Assessment 33422 Physical exam (Primary Care) Vital Signs: Last Vital Signs Temp 98.6 F 07/15/25 10:01 Pulse 65 07/15/25 10:01 Resp 18 07/15/25 10:01 BP 144/78 H 07/15/25 10:01 Pulse Ox 97 07/15/25 10:01 Oxygen Delivery Method Room Air 07/15/25 10:01 BMI result Body Mass Index 28.1 Tobacco/Smoking Status: Tobacco use Status Tobacco use date assessed 03/07/25 07/15/25 09:50 Patient Tobacco Use Status Never used Tobacco 07/15/25 09:50 e-Cigarette/Vaping Use Never Used 07/15/25 09:50 PHQ-9: PHQ-9 Score PHQ-9: Total score 1 07/15/25 10:32 Depression Screening Interpretation: Negative Thrive Assessment: Date of Thrive Assessment Date Thrive assessed 07/15/25 07/15/25 10:32 Coding Level of Care Code Est Pt Level 4 (06831) Complex visit Add On G2211 Diagnoses GERD (gastroesophageal reflux disease) K21.9 HTN (hypertension) I10 Hyperlipidemia E78.5 Additional Codes PHQ-9 - 83898 - PHQ-9 Billing: Yes ([id number]) WAQAR-7 Assessment Billing - WAQAR-7 Assessment Tool: WAQAR-7 Assessment 05085 ([id number]) Assessment & Plan Assessment & Plan (1) GERD (gastroesophageal reflux disease): Code(s): K21.9 - Gastro-esophageal reflux disease without esophagitis Category: Medical Plan: New onset with signficant saliva and scratchy voice with retrosternal chest burning. Inquiring whether EGD should be performed at same time as colonoscopy in coming weeks. Will send message to repair technician to inquire. COntinue nexium and avoid triggering foods discussed. (2) HTN (hypertension): Code(s): I10 - Essential (primary) hypertension Category: Medical Plan: Controlled on recheck. Continue current therapies (3) Hyperlipidemia: Code(s): E78.5 - Hyperlipidemia, unspecified Category: Medical Plan: At goal. Reviewing Dr. Barbosa's last note. Continue atorvastatin. Diet low in saturated fats and highly processed foods Plan Follow up in 6 months
[2025-07-15 10:01] VITALS: BP 144/78; PULSE 65; RESP 18; TEMP 37; O2SAT 97; BMI 28.1
[2025-07-16 21:19] VITALS: BP 134/80
== END 2025-07-15 10:29 | disposition home or self-care (01) ==
LOC: HO.HMCHD 09:46
PROVIDERS: PCP Internal Medicine; Visit Provider Physician Assistant
DX: K21.9 Gastro-esophageal reflux disease without esophagitis (principal); I10 Essential (primary) hypertension; E78.5 Hyperlipidemia, unspecified

== ENCOUNTER → 2025-07-15 09:45 | Outpatient (BNVA) | payer OTHER, SELFPAY | PROVIDERS: PCP Internal Medicine; Visit Provider Physician Assistant | DX: K21.9 Gastro-esophageal reflux disease without esophagitis (principal); I10 Essential (primary) hypertension; E78.5 Hyperlipidemia, unspecified; I25.10 Atherosclerotic heart disease of native coronary artery without angina pectoris; M17.0 Bilateral primary osteoarthritis of knee; Z79.82 Long term (current) use of aspirin; Z79.899 Other long term (current) drug therapy; Z13.31 Encounter for screening for depression; Z13.39 Encounter for screening examination for other mental health and behavioral disorders | CPT/HCPCS: 96127 ==